=== PATIENT | male | born 1995 | race Caucasian/White ===

== ENCOUNTER → 2020-09-12 | Outpatient (CLI) | payer BC ==
[~2020-09-12] MED LIST: OMNIPAQUE 350 MG/ML, 100ML BOTTLE ONE
== END | disposition home or self-care (01) ==
LOC: CFH 11:24
PROVIDERS: ATTEND Internal Medicine
DX: K40.90 Unilateral inguinal hernia, without obstruction or gangrene, not specified as recurrent (principal); R10.84 Generalized abdominal pain; R19.5 Other fecal abnormalities; R14.0 Abdominal distension (gaseous); K76.89 Other specified diseases of liver; Z98.890 Other specified postprocedural states
CPT/HCPCS: 74177; Q9967